=== PATIENT | female | born 1995 | race African-American/Black ===

== ENCOUNTER 2017-09-18 21:30 | Emergency (ER) | payer BC ==
[2017-09-18 21:33] VITALS: BP 110/53; PULSE 75; RESP 16; TEMP 98.7; O2SAT 98
[2017-09-18] MEDS ORDERED: DEXAMETHASONE SOD PHOS 4 MG/ML VIAL IM ONE (21:45)
[2017-09-18] MEDS ORDERED: PRED20 PO (21:49)
[2017-09-18] MEDS ORDERED: ZANT300T PO (21:49)
--- NOTE | 2017-09-18 21:49 | PD ---
HPI Chief Complaint: Skin Problem Time Seen by Provider: 21:38 Travel History International Travel<30 days: No Contact w/Intl Traveler<30days: No Traveled to known affect area: No History of Present Illness HPI 31-year-old female complains of itching rash in the right hand and left arm. Patient states the symptoms started last night. Patient states that the itching and swelling got better this morning and get worse again this evening. Patient denies any problem with swallowing. Patient denies any chest pain. Patient denies any shortness of breath. Patient is not sure of exposure. Patient took Benadryl prior coming to the emergency room. FORMERLY [facility], 1928–1983 Social History Tobacco Use: No Allergies-Medications (Allergen,Severity, Reaction): Coded Allergies: No Known Allergies (Unverified , 09/18/17) Reported Meds & Prescriptions Reported Meds & Active Scripts Active Zantac (Ranitidine HCl) 300 Mg Tab 300 Mg PO DAILY Prednisone 20 Mg Tab 20 Mg PO BID Review of Systems General / Constitutional: No: Fever Eyes: No: Visual changes HENT: No: Headaches Cardiovascular: No: Chest Pain or Discomfort Respiratory: No: Shortness of Breath Gastrointestinal: No: Abdominal Pain Genitourinary: No: Dysuria Musculoskeletal: No: Pain Skin: Positive Rash, Positive Itching Neurologic: No: Weakness Psychiatric: No: Depression Endocrine: No: Polydipsia Hematologic/Lymphatic: No: Easy Bruising Physical Exam Narrative GENERAL: Well-nourished, well-developed patient. SKIN: Focused skin assessment warm/dry. HEAD: Normocephalic. EYES: No scleral icterus. No injection or drainage. NECK: Supple, trachea midline. No JVD or lymphadenopathy. CARDIOVASCULAR: Regular rate and rhythm without murmurs, gallops, or rubs. RESPIRATORY: Breath sounds equal bilaterally. No accessory muscle use. GASTROINTESTINAL: Abdomen soft, non-tender, nondistended. MUSCULOSKELETAL: No cyanosis, or edema. BACK: Nontender without obvious deformity. No CVA tenderness. Patient has hives over the left arm and dorsal aspect the right hand. Nontender on palpation. No redness no heat. Data Data Last Documented VS Vital Signs Date Time Temp Pulse Resp B/P (MAP) Pulse Ox O2 Delivery O2 Flow Rate FiO2 09/18/17 22:05 09/18/17 21:33 98.7 75 16 98 Orders Orders Dexamethasone Inj (Decadron Inj) (09/18/17 21:45) Ed Discharge Order (09/18/17 22:26) MDM Medical Decision Making Medical Screen Exam Complete: Yes Emergency Medical Condition: Yes Differential Diagnosis Differential diagnosis including allergic reaction, contact dermatitis. Narrative Course 21-year-old female with hives over the right hand and left arm. Decadron 8 mg IM. Diagnosis Primary Impression: Allergic reaction Qualified Codes: T78.40XA - Allergy, unspecified, initial encounter Patient Instructions: General Instructions Additional Instructions: Prednisone and Benadryl as directed. Follow-up with personal physician. Return if worse. Med/Other Pt SpecificInfo: Prescription(s) given Scripts Ranitidine (Zantac) 300 Mg Tab 300 MG PO DAILY, #7 TAB 0 Refills Prov: Mainor Esparza MD 09/18/17 Prednisone (Prednisone) 20 Mg Tab 20 MG PO BID, #10 TAB 0 Refills Prov: Mainor Esparza MD 09/18/17 Disposition: 01 DISCHARGE HOME Condition: Stable Mainor Esparza MD Sep 18, 2017 21:49
== END 2017-09-18 22:00 | disposition home or self-care (01) ==
LOC: NEPD 21:30
DX: L50.0 Allergic urticaria (principal)
CPT/HCPCS: 96372; 99283; J1100